=== PATIENT | female | born 1940 | race Caucasian/White ===

== ENCOUNTER 2017-05-19 13:37 | Emergency (ER) | payer OTHER ==
[~2017-05-19] VITALS: Ht 152.4 cm; Wt 77.2 kg
[~2017-05-19 13:37] MED LIST: CO Q-1010 MG PO; CO Q-10100 MG PO; CO Q-10200 MG PO; CRESTOR10 MG PO; LEVAQUIN750 MG PO; LOPRESSOR50 MG PO; MULTIPLE VITAM1 EACH PO; TIROSINT50 MCG PO; VITAMIN B12-FO1 EACH PO; VITAMIN D32000 UNI1 PO
[2017-05-19 16:16] VITALS: BP 167/90
== END 2017-05-19 16:17 | disposition home or self-care (01) ==
LOC: EME 13:37
DX: S01.81XA Laceration without foreign body of other part of head, initial encounter (principal); S80.01XA Contusion of right knee, initial encounter; W01.0XXA Fall on same level from slipping, tripping and stumbling without subsequent striking against object, initial encounter; Y93.01 Activity, walking, marching and hiking; Y92.480 Sidewalk as the place of occurrence of the external cause; Z23 Encounter for immunization; I10 Essential (primary) hypertension; Z96.651 Presence of right artificial knee joint
CPT/HCPCS: 70450; 70486; 72125; 73564; 99281; 99285

== ENCOUNTER 2017-08-30 11:17 | Emergency (ER) | payer OTHER ==
[~2017-08-30] VITALS: Ht 157.5 cm; Wt 77.3 kg
[2017-08-30] MEDS ORDERED: CIPRO500 MG PO (12:27)
[2017-08-30 14:06] VITALS: BP 179/60
== END 2017-08-30 14:07 | disposition home or self-care (01) ==
LOC: EME 11:17
DX: S00.81XA Abrasion of other part of head, initial encounter (principal); W10.1XXA Fall (on)(from) sidewalk curb, initial encounter; I10 Essential (primary) hypertension; J45.909 Unspecified asthma, uncomplicated; K21.9 Gastro-esophageal reflux disease without esophagitis; Z85.3 Personal history of malignant neoplasm of breast; Z90.12 Acquired absence of left breast and nipple
CPT/HCPCS: 70450; 72125; 99281; 99283